=== PATIENT | male | born 1980 | race Caucasian/White ===

== ENCOUNTER 2020-02-11 15:48 | Emergency (ER) | payer SELFPAY ==
--- NOTE | 2020-02-11 16:31 | EDM.PDOC ---
ED HPI GENERAL MEDICAL PROBLEM - General Chief Complaint: Cardiovascular Problem Stated Complaint: LAW ENFORCEMENT Time Seen by Provider: 02/11/20 16:04 Source of Information: Reports: Patient, RN Notes Reviewed - History of Present Illness INITIAL COMMENTS - FREE TEXT/NARRATIVE: 39 yr old male has been sent here from [facility] for eval. of Htn. He states he has run "high BP readings" for as long a he can remember. Has had some very high readings at the [facility] today, was also given a dose of medication at the [facility], started with a C, he thinks clonidine sound right at the [facility] this afternoon prior to transport. He has had no recent illness. No headaches, chest pain, dyspnea, visual problems or other unusual sx. Has never been placed on meds for Htn. - Related Data Allergies Allergy/AdvReac Type Severity Reaction Status Date / Time No Known Allergies Allergy Verified 02/11/20 16:11 Home Meds: Home Meds Enalapril [Vasotec] 5 mg PO DAILY #30 tab 02/11/20 [Rx] Past Medical History - Past Health History Medical/Surgical History: Denies Medical/Surgical History - Infectious Disease History Infectious Disease History: Reports: Chicken Pox Social & Family History - Tobacco Use Tobacco Use Status *Q: Current Every Day Tobacco User Years of Tobacco use: 24 Packs/Tins Daily: 1 - Caffeine Use Caffeine Use: Reports: Coffee, Energy Drinks, Soda, Tea - Recreational Drug Use Recreational Drug Type: Reports: Marijuana/Hashish, Methamphetamine Other Recreational Drug Type: last used 3 yrs marijuana; meth 3 months ED ROS GENERAL - Review of Systems Review Of Systems: See Below Constitutional: Denies: Fever, Chills, Diaphoresis HEENT: Denies: Eye Pain Respiratory: Denies: Shortness of Breath Cardiovascular: Denies: Chest Pain GI/Abdominal: Denies: Abdominal Pain, Nausea, Vomiting Musculoskeletal: Denies: Neck Pain, Shoulder Pain, Arm Pain, Back Pain Skin: Reports: No Symptoms Neurological: Denies: Dizziness, Headache, Numbness, Tingling, Trouble Speaking, Difficulty Walking ED EXAM, GENERAL - Physical Exam Exam: See Below General Appearance: Alert, No Apparent Distress Eye Exam: Bilateral Eye: PERRL Head: Atraumatic. No: Facial Swelling Neck: Supple, Full Range of Motion Respiratory/Chest: No Respiratory Distress, Lungs Clear, Normal Breath Sounds Cardiovascular: Regular Rate, Rhythm GI/Abdominal: Soft, Non-Tender Extremities: No: Pedal Edema, Leg Pain Neurological: Alert, Oriented, No Motor/Sensory Deficits Skin Exam: Warm, Dry, Normal Color Course - Vital Signs Last Recorded V/S: Last Vital Signs Temp 98.1 F 02/11/20 15:59 Pulse 60 02/11/20 16:02 Resp 20 02/11/20 16:02 BP 164/107 H 02/11/20 16:54 Pulse Ox 100 02/11/20 16:02 - Orders/Labs/Meds Labs: Laboratory Tests 02/11/20 02/11/20 Range/Units 17:05 17:05 WBC 7.56 (4.23-9.07) K/mm3 RBC 4.97 (4.63-6.08) M/mm3 Hgb 15.2 (13.7-17.5) gm/dl Hct 46.4 (40.1-51.0) % MCV 93.4 H (79.0-92.2) fl MCH 30.6 (25.7-32.2) pg MCHC 32.8 (32.2-35.5) g/dl RDW Std Deviation 41.6 (35.1-43.9) fL Plt Count 232 (163-337) K/mm3 MPV 9.8 (9.4-12.3) fl Neut % (Auto) 59.2 (34.0-67.9) % Lymph % (Auto) 28.4 (21.8-53.1) % [place] % (Auto) 8.7 (5.3-12.2) % Eos % (Auto) 2.9 (0.8-7.0) Baso % (Auto) 0.5 (0.1-1.2) % Neut # (Auto) 4.47 (1.78-5.38) K/mm3 Lymph # (Auto) 2.15 (1.32-3.57) K/mm3 [place] # (Auto) 0.66 (0.30-0.82) K/mm3 Eos # (Auto) 0.22 (0.04-0.54) K/mm3 Baso # (Auto) 0.04 (0.01-0.08) K/mm3 Sodium 142 (136-145) mEq/L Potassium 5.0 (3.5-5.1) mEq/L Chloride 104 (98-107) mEq/L Carbon Dioxide 29 (21-32) mEq/L Anion Gap 14.0 (5-15) BUN 17 (7-18) mg/dL Creatinine 1.1 (0.7-1.3) mg/dL Est Cr Clr Drug Dosing 90.25 mL/min Estimated GFR (MDRD) > 60 (>60) mL/min BUN/Creatinine Ratio 15.5 (14-18) Glucose 89 (74-106) mg/dL Calcium 9.2 (8.5-10.1) mg/dL Total Bilirubin 0.6 (0.2-1.0) mg/dL AST 13 L (15-37) U/L ALT 21 (16-63) U/L Alkaline Phosphatase 88 (46-116) U/L Total Protein 7.1 (6.4-8.2) g/dl Albumin 4.0 (3.4-5.0) g/dl Globulin 3.1 gm/dL Albumin/Globulin Ratio 1.3 (1-2) Meds: Medications Discontinued Medications Generic Name Dose Route Start Last Admin Trade Name Freq PRN Reason Stop Dose Admin Enalapril Maleate 5 mg 02/11/20 16:41 02/11/20 16:54 Vasotec PO 02/11/20 16:42 5 mg ONETIME ONE Administration Enalapril Maleate 5 mg 02/11/20 18:10 Vasotec PO 02/11/20 18:11 ONETIME ONE - Re-Assessments/Exams Free Text/Narrative Re-Assessment/Exam: 02/11/20 18:07 Labs checked are OK. BP has come down to the 140's over about 100 range. Continues to be asymptomatic. Will start on vasotec 5 mg daily realizing that this is going to be a work in progress for him. Will try have a dosage sent back with him for tomorrow. Discharge instr. as documented. Departure - Departure Time of Disposition: 18:09 Disposition: Home, Self-Care 01 Condition: Fair Clinical Impression: Hypertension Qualifiers: Hypertension type: essential hypertension Qualified Code(s): I10 - Essential (primary) hypertension Prescriptions: Enalapril [Vasotec] 5 mg PO DAILY #30 tab Referrals: PCP,None [Primary Care Provider] - Forms: ED Department Discharge Additional Instructions: Continue to watch your salt and avoid salty foods. Vasotec 5 mg daily. This is a starting dose. Dosage will likely need to be increased over time. You may need 2 or 3 meds to bring you Blood pressure under more ideal control. Follow [facility] protocol as far as monitering your BP, having dosage increased as needed. Sepsis Event Note (ED) - Evaluation Sepsis Screening Result: No Definite Risk - Focused Exam Vital Signs: Vital Signs Temp Pulse Resp BP BP BP Pulse Ox 02/11/20 16:54 164/107 H 02/11/20 16:02 60 20 190/104 H 100 02/11/20 15:59 98.1 F 60 176/108 H 193/116 H
[2020-02-11] MEDS ORDERED: Enalapril 5 MG Tab PO ONE ×2 (16:41→18:10)
== END 2020-02-11 18:25 | disposition home or self-care (01) ==
LOC: JD.ED 15:48
DX: I10 Essential (primary) hypertension (principal); F17.210 Nicotine dependence, cigarettes, uncomplicated; Z79.899 Other long term (current) drug therapy
CPT/HCPCS: 36415; 80053; 85025; 99284; A9270; 99283